=== PATIENT | male | born 1935 | race African-American/Black ===

== ENCOUNTER 2020-04-21 13:00 | Emergency (ER) | payer OTHER ==
[~2020-04-21] VITALS: Ht 182.9 cm; Wt 108.0 kg
[2020-04-21 13:02] VITALS: BP 152/89
== END 2020-04-21 14:45 | disposition home or self-care (01) ==
LOC: ER 13:00
DX: R21 Rash and other nonspecific skin eruption (principal); J44.9 Chronic obstructive pulmonary disease, unspecified
CPT/HCPCS: 99283

== ENCOUNTER 2020-08-11 10:51 | Emergency (ER) | payer OTHER ==
[~2020-08-11] VITALS: Ht 182.9 cm; Wt 112.0 kg
[2020-08-11 10:54] VITALS: BP 161/90
[2020-08-11] MEDS ORDERED: ALBUTEROL 6.7GM HFA INHALER ORI ONE (11:30)
[2020-08-11 11:49] LABS: HEMOGLOBIN. 13.8 g/dL (14.0-18.0); MEAN CORPUSCULAR HEMOGLOBIN 29.6 pg (28.0-32.0); MEAN CORPUSCULAR VOLUME 89.8 fL (80.0-94.0); MEAN PLATELET VOLUME 9.4 fl (7.4-10.4); PLATELET 181 x1000/uL (130-400); RED BLOOD CELL COUNT 4.67 mill/uL (4.7-6.1); RED CELL DISTRIBUTION WIDTH 14.3 % (11.6-14.6)
[2020-08-11 11:55] LABS: CHLORIDE 108 mEq/L (98-107)
[2020-08-11 12:20] LABS: PLATELET ESTIMATE NORMAL
== END 2020-08-11 13:01 | disposition home or self-care (01) ==
LOC: ER 11:12
DX: J44.9 Chronic obstructive pulmonary disease, unspecified (principal); Z20.828 Contact with and (suspected) exposure to other viral communicable diseases; Z98.890 Other specified postprocedural states
CPT/HCPCS: 36415; 71045; 80053; 83880; 85025; 87635; 93005; 99285

== ENCOUNTER 2022-05-24 19:55 | Emergency (ER) | payer OTHER ==
[~2022-05-24] VITALS: Ht 182.9 cm; Wt 91.0 kg
[2022-05-24] MEDS ORDERED: PREDNISONE 20MG TABLET PO STA (20:17)
[2022-05-24] MEDS ORDERED: ALBUTEROL (0.083%) 2.5MG/3ML NEB HHN STA (20:17)
[2022-05-24] MEDS ORDERED: IPRATROPIUM BROMIDE (0.02%) 0.5MG/2.5ML NEB HHN STA (20:17)
[2022-05-24 21:37] LABS: BG BASE EXCESS -4.7 mmol/L (-2.0-2.0); BG CARBOXYHEMOGLOBIN 0.7 % (0.5-1.5); BG DEOXYHEMOGLOBIN 2.7 % (0.0-5.0); BG FRACTION INSPIRED OXYGEN 32; BG HCO3 ACT 19.8 mmol/L (22.0-26.0); BG METHEMOGLOBIN 0.4 % (0.0-1.5); BG OXYGEN SATURATION 97.3 % (92.0-98.5); BG OXYHEMOGLOBIN 96.2 % (94.0-97.0); BG PCO2 34.9 mmHg (35.0-45.0); BG PH 7.372 (7.350-7.450); BG SAMPLE SITE LEFT RADIAL; BG TOTAL HEMOGLOBIN 13.5 g/dL (12.0-18.0); BG VENT MODE NASAL CANNULA
[2022-05-24 21:38] LABS: BASOPHILS % 0.3 % (0.0-2.0); EOSINOPHILS % 4.6 % (0.0-5.0); HEMATOCRIT. 44.8 % (42.0-52.0); HEMOGLOBIN. 14.6 g/dL (14.0-18.0); MEAN CORPUSCULAR HEMOGLOBIN 29.7 pg (28.0-32.0); MEAN CORPUSCULAR VOLUME 90.9 fL (80.0-94.0); MEAN PLATELET VOLUME 8.2 fl (7.4-10.4); MONOCYTES % 11.4 % (2.0-8.0); NEUTROPHILS % 71.7 % (40.0-76.0); PLATELET 236 x1000/uL (130-400); RED BLOOD CELL COUNT 4.93 mill/uL (4.7-6.1); RED CELL DISTRIBUTION WIDTH 14.7 % (11.6-14.6)
[2022-05-24 21:54] LABS: CHLORIDE 110 mEq/L (98-107)
[2022-05-24 23:55] VITALS: BP 136/67
== END 2022-05-24 23:50 | disposition short-term general hospital (02) ==
LOC: ER 19:55
DX: J44.1 Chronic obstructive pulmonary disease with (acute) exacerbation (principal)
CPT/HCPCS: 36415; 36600; 71045; 80053; 82375; 82805; 83880; 84132; 84484; 85025; 93005; 94640; 99285; J7512

== ENCOUNTER 2022-10-16 12:53 | Emergency (ER) | payer OTHER ==
[~2022-10-16] VITALS: Ht 193 cm; Wt 102.0 kg
[2022-10-16] MEDS ORDERED: MORPHINE SULFATE 4 MG/ML CPJ (NOT FOR IM USE) IV ONE (14:45)
[2022-10-16] MEDS ORDERED: KETOROLAC 30MG/ML VIAL IV ONE ×2 (14:45→17:00)
[2022-10-16] MEDS ORDERED: PROPOFOL 200MG/20ML VIAL IV ONE (15:45)
[2022-10-16] MEDS ORDERED: LIDOCAINE HCL/EPINEPHRINE 1%-EPI 1:100,000 50 ML VIAL INFIL NR (16:00)
[2022-10-16] MEDS ORDERED: MORPHINE SULFATE 4 MG/ML CPJ (NOT FOR IM USE) IV NR (16:45)
[2022-10-16] MEDS ORDERED: PROPOFOL 200MG/20ML VIAL IV NR (18:15)
[2022-10-16] MEDS ORDERED: HYDR-4001 MT (19:59)
[2022-10-16] MEDS ORDERED: IBUP-2030 MT (19:59)
[2022-10-16 20:50] VITALS: BP 159/95
== END 2022-10-16 21:04 | disposition home or self-care (01) ==
LOC: ER 13:14
DX: S52.301A Unspecified fracture of shaft of right radius, initial encounter for closed fracture (principal); I10 Essential (primary) hypertension; V49.9XXA Car occupant (driver) (passenger) injured in unspecified traffic accident, initial encounter; Y93.89 Activity, other specified; Y92.89 Other specified places as the place of occurrence of the external cause; Y99.8 Other external cause status
CPT/HCPCS: 25605; 73110; 96374; 96375; 99152; 99285; J1885; J2270; J2704; A4565

== ENCOUNTER 2022-11-04 15:12 | Emergency (ER) | payer OTHER ==
[~2022-11-04] VITALS: Ht 172.7 cm; Wt 205.0 kg
[~2022-11-04 15:12] MED LIST: HYDR-4001 MT; IBUP-2030 MT
[2022-11-04 21:59] LABS: HEMATOCRIT. 47.4 % (42.0-52.0); HEMOGLOBIN. 15.2 g/dL (14.0-18.0); MEAN CORPUSCULAR HEMOGLOBIN 28.4 pg (28.0-32.0); MEAN CORPUSCULAR VOLUME 88.4 fL (80.0-94.0); MEAN PLATELET VOLUME 9.5 fl (7.4-10.4); PLATELET 186 x1000/uL (130-400); RED BLOOD CELL COUNT 5.37 mill/uL (4.7-6.1); RED CELL DISTRIBUTION WIDTH 15.2 % (11.6-14.6)
[2022-11-04 22:12] LABS: CHLORIDE 111 mEq/L (98-107)
[2022-11-04 22:51] LABS: PLATELET ESTIMATE NORMAL
[2022-11-05] MEDS ORDERED: SODIUM CHLORIDE 0.9% 1,000 ML IV ONE (00:15)
[2022-11-05 03:57] LABS: CLARITY URINE CLEAR (CLEAR); COLOR URINE DARK YELLOW (YELLOW); KETONES URINE 1+ (NEGATIVE); LEUKOCYTE ESTERASE URINE NEGATIVE (NEGATIVE); NITRITE URINE NEGATIVE (NEGATIVE); OCCULT BLOOD URINE 1+ (NEGATIVE); PROTEIN URINE 2+ (NEGATIVE); SPECIFIC GRAVITY URINE 1.026 (1.005-1.030); UROBILINOGEN URINE 0.2 E.U./dL (0.2-1.0)
[2022-11-05 06:00] VITALS: BP 157/85
== END 2022-11-05 07:33 | disposition home or self-care (01) ==
LOC: ER 15:12
DX: R19.7 Diarrhea, unspecified (principal); R74.02 Elevation of levels of lactic acid dehydrogenase [LDH]; I10 Essential (primary) hypertension; J44.9 Chronic obstructive pulmonary disease, unspecified; K21.9 Gastro-esophageal reflux disease without esophagitis
CPT/HCPCS: 36415; 80053; 81003; 83605; 83690; 85025; 96360; 99283; J7030

== ENCOUNTER 2024-03-31 09:49 | Emergency (ER) | payer OTHER ==
[~2024-03-31] VITALS: Ht 177.8 cm; Wt 104.0 kg
[2024-03-31 09:54] VITALS: O2SAT 97
[2024-03-31 11:10] LABS: BASOPHILS % 0.1 % (0.0-2.0); EOSINOPHILS % 1.5 % (0.0-5.0); HEMATOCRIT. 42.6 % (42.0-52.0); HEMOGLOBIN. 13.9 g/dL (14.0-18.0); LYMPHOCYTES % 12.3 % (20.0-50.0); MEAN CORPUSCULAR HEMOGLOBIN 29.3 pg (28.0-32.0); MEAN CORPUSCULAR HGB CONC 32.7 g/dL (31.0-37.0); MEAN CORPUSCULAR VOLUME 89.6 fL (80.0-94.0); MONOCYTES % 10.9 % (2.0-8.0); NEUTROPHILS % 75.2 % (40.0-76.0); PLATELET 241 x1000/uL (130-400); RED BLOOD CELL COUNT 4.75 mill/uL (4.7-6.1); RED CELL DISTRIBUTION WIDTH 14.3 % (11.6-14.6); WHITE BLOOD COUNT 6.9 x1000/uL (4.5-11.0)
[2024-03-31 11:14] LABS: CHLORIDE 111 mEq/L (98-107); POTASSIUM 4.4 mEq/L (3.5-5.1); SODIUM 139 mEq/L (136-145)
[2024-03-31 11:15] LABS: CALCIUM 8.8 mg/dL (8.7-10.4); CARBON DIOXIDE 22 mEq/L (21-32)
[2024-03-31 11:20] LABS: CREATININE 1.4 mg/dL (0.6-1.3); GLUCOSE 118 mg/dL (70-105); UREA NITROGEN BLOOD 15 mg/dL (9-23)
[2024-03-31 11:21] LABS: PROTHROMBIN TIME 11.4 sec (9.6-11.0)
[2024-03-31 11:22] LABS: PHOSPHORUS 3.7 mg/dL (2.5-4.9); TROPONIN I HIGH SENSITIVITY 13 ng/L (3.0-53)
[2024-03-31 12:13] VITALS: BP 114/84; PULSE 63; RESP 16; TEMP 97.7
== END 2024-03-31 12:31 | disposition home or self-care (01) ==
LOC: ER 09:49 → CANBEDREQ 11:55 → ER 12:31
DX: R53.1 Weakness (principal); J44.1 Chronic obstructive pulmonary disease with (acute) exacerbation; I10 Essential (primary) hypertension
CPT/HCPCS: 36415; 80048; 83735; 83880; 84100; 84484; 85025; 93005; 99284

== ENCOUNTER 2024-05-11 15:38 | Emergency (ER) | payer OTHER ==
[~2024-05-11] VITALS: Ht 172.7 cm; Wt 70.0 kg
[2024-05-11 15:39] VITALS: O2SAT 98
[2024-05-11 16:40] VITALS: BP 107/72; PULSE 77; RESP 18; TEMP 36.94740; O2SAT 98
== END 2024-05-11 16:50 | disposition left against medical advice (07) ==
LOC: ER 15:38
DX: R56.9 Unspecified convulsions (principal); J44.1 Chronic obstructive pulmonary disease with (acute) exacerbation; I10 Essential (primary) hypertension
CPT/HCPCS: 99283

== ENCOUNTER 2025-04-18 08:40 | Emergency (ER) | payer OTHER, MEDICAID ==
[~2025-04-18] VITALS: Ht 172.7 cm; Wt 73.0 kg
[2025-04-18 08:42] VITALS: O2SAT 99
[2025-04-18] MEDS: MORPHINE SULFATE 4 MG/ML INJ (FOR IV/IM USE) IV ONE (09:37)
[2025-04-18 09:55] LABS: HEMATOCRIT. 29.9 % (42.0-52.0); HEMOGLOBIN. 9.9 g/dL (14.0-18.0); MEAN PLATELET VOLUME 8.6 fl (7.4-10.4); PLATELET 214 x1000/uL (130-400); RED BLOOD CELL COUNT 3.36 mill/uL (4.7-6.1); RED CELL DISTRIBUTION WIDTH 14.9 % (11.6-14.6)
[2025-04-18 10:05] LABS: CREATININE 0.9 mg/dL (0.6-1.3); UREA NITROGEN BLOOD 12 mg/dL (9-23)
[2025-04-18 10:07] LABS: ASPARTATE AMINOTRANSFERASE 15 IU/L (<34); BILIRUBIN DIRECT 0.1 mg/dL (<=3.0); BILIRUBIN TOTAL 0.3 mg/dL (0.1-1.0); PROTEIN TOTAL 6.1 g/dL (6.0-8.3)
[2025-04-18 11:51] LABS: BAND% 2.0 % (1.0-6.0); EOSINOPHILS % MANUAL 38.0 % (0.0-5.0); LYMPHOCYTES % MANUAL 11.0 % (20.0-50.0); MONOCYTES % MANUAL 12.0 % (2.0-8.0); NEUTROPHILS % MANUAL 37.0 % (45.0-75.0); PLATELET ESTIMATE NORMAL
[2025-04-18 12:13] LABS: CLARITY URINE CLEAR (CLEAR); COLOR URINE YELLOW (YELLOW); GLUCOSE URINE NEGATIVE (NEGATIVE); KETONES URINE NEGATIVE (NEGATIVE); LEUKOCYTE ESTERASE URINE NEGATIVE (NEGATIVE); NITRITE URINE NEGATIVE (NEGATIVE); OCCULT BLOOD URINE NEGATIVE (NEGATIVE); PH URINE 6.5 (4.5-8.0); PROTEIN URINE NEGATIVE (NEGATIVE); SPECIFIC GRAVITY URINE 1.012 (1.005-1.030); UROBILINOGEN URINE 1.0 E.U./dL (0.2-1.0)
[2025-04-18] MEDS: ONDANSETRON HCL 4MG/2ML INJ IV SCH (13:00)
[2025-04-18 13:07] VITALS: BP 136/67; PULSE 69; RESP 14; TEMP 36.8; O2SAT 100
== END 2025-04-18 12:45 | disposition short-term general hospital (02) ==
LOC: ER 08:40 → CANBEDREQ 11:28 → ER 12:45
DX: R10.84 Generalized abdominal pain (principal); J44.9 Chronic obstructive pulmonary disease, unspecified; I10 Essential (primary) hypertension; Z93.1 Gastrostomy status; Z85.818 Personal history of malignant neoplasm of other sites of lip, oral cavity, and pharynx
CPT/HCPCS: 99285; 74176; 96374; 96375; 80076; 80048; 81003; 83690; 85025; 36415; J2405; J2270; A4606

== ENCOUNTER 2025-05-20 05:54 | Emergency (ER) | payer OTHER ==
[~2025-05-20] VITALS: Ht 167.6 cm; Wt 73.0 kg
[2025-05-20 06:29] LABS: HEMATOCRIT. 37.5 % (42.0-52.0); HEMOGLOBIN. 11.9 g/dL (14.0-18.0); MEAN PLATELET VOLUME 9.9 fl (7.4-10.4); PLATELET 204 x1000/uL (130-400); RED BLOOD CELL COUNT 4.21 mill/uL (4.7-6.1); RED CELL DISTRIBUTION WIDTH 17.0 % (11.6-14.6)
[2025-05-20 06:46] LABS: EOSINOPHILS % MANUAL 2.0 % (0.0-5.0); LYMPHOCYTES % MANUAL 8.0 % (20.0-50.0); MONOCYTES % MANUAL 3.0 % (2.0-8.0); NEUTROPHILS % MANUAL 87.0 % (45.0-75.0); PLATELET ESTIMATE NORMAL
[2025-05-20 06:56] LABS: UREA NITROGEN BLOOD 39.0 mg/dL (9-23)
[2025-05-20 07:00] LABS: CREATININE 1.8 mg/dL (0.6-1.3)
[2025-05-20] MEDS: SODIUM CHLORIDE 0.9% 500 ML IV ONE (07:20)
[2025-05-20 07:33] VITALS: PULSE 86; RESP 19; O2SAT 100
[2025-05-20] MEDS ORDERED: AMLODIPINE 5MG TABLET PO SCH (10:00)
[2025-05-20] MEDS ORDERED: TAMSULOSIN HCL 0.4MG SR CAPSULE PO SCH (10:00)
[2025-05-20] MEDS ORDERED: DEXT 5%/0.45% NACL 1000ML 1,000 ML IV SCH (10:00)
[2025-05-20] MEDS ORDERED: ONDANSETRON HCL 4MG/2ML INJ IV PRN (10:00)
[2025-05-20] MEDS ORDERED: ACETAMINOPHEN 325MG TABLET PO PRN ×2 (10:00)
[2025-05-20] MEDS ORDERED: CLONIDINE 0.1MG TABLET PO PRN (10:00)
[2025-05-20] MEDS ORDERED: PANTOPRAZOLE SODIUM 40 MG/VIAL IV SCH (10:30)
[2025-05-20 10:35] LABS: BG BASE EXCESS -4.0 mmol/L (-2.0-3.0); BG CARBOXYHEMOGLOBIN 0.6 % (0.5-1.5); BG DEOXYHEMOGLOBIN 3.9 % (0.0-5.0); BG FRACTION INSPIRED OXYGEN 21; BG HCO3 ACT 20.6 mmol/L (21.0-28.0); BG METHEMOGLOBIN 0.3 % (0.5-1.5); BG OXYGEN SATURATION 96.1 % (94.0-98.0); BG OXYHEMOGLOBIN 95.2 % (94.0-98.0); BG PCO2 36.6 mmHg (35.0-48.0); BG PH 7.369 (7.350-7.450); BG PO2 86.0 mmHg (83.0-108.0); BG SAMPLE SITE RIGHT RADIAL; BG TOTAL HEMOGLOBIN 13.9 g/dL (13.5-17.5); BG VENT MODE ROOM AIR
[2025-05-20 10:48] VITALS: BP 117/58; PULSE 77; RESP 22; TEMP 36.8; O2SAT 100
[2025-05-20 11:47] LABS: PHOSPHORUS 3.8 mg/dL (2.5-4.9)
[2025-05-20] MEDS ORDERED: ATORVASTATIN CALCIUM 20MG TABLET PO SCH (21:00)
== END 2025-05-20 11:05 | disposition short-term general hospital (02) ==
LOC: ER 05:54 → EDBEDREQTM 10:38 → EDBEDREQ 10:38 → ER 11:05 → CMPBEDREQ 11:08
DX: E87.0 Hyperosmolality and hypernatremia (principal); R09.02 Hypoxemia; E78.5 Hyperlipidemia, unspecified; R74.8 Abnormal levels of other serum enzymes; I10 Essential (primary) hypertension; J44.9 Chronic obstructive pulmonary disease, unspecified; Z87.891 Personal history of nicotine dependence; Z79.899 Other long term (current) drug therapy; Z79.01 Long term (current) use of anticoagulants; Z20.822 Contact with and (suspected) exposure to COVID-19
CPT/HCPCS: 99285; 71045; 87426; 80048; 83036; 83880; 83540; 83550; 83735; 84100; 85025; 36415; 84145; 82805; 82375; 94664; 31720; 93005; 36600; J7030